=== PATIENT | female | born 1995 | race Caucasian/White ===

== ENCOUNTER 2025-04-18 05:21 | Emergency (ER) | payer OTHER ==
[2025-04-18 05:51] LABS: #Basophils 0.03 10x3/uL (0.0-0.2); #Eosinophils 0.36 10x3/uL (0.0-0.5); #Monocytes 0.72 10x3/uL (0.0-1.1); #Neutrophils 4.34 10x3/uL (1.5-8.4); %Basophils 0.4 % (0.0-2.0); %Eosinophils 4.7 % (0.0-6.0); %Lymphocytes 29.1 % (18.0-47.0); %Monocytes 9.3 % (0.0-10.0); %Neutrophils 56.2 % (40.0-75.0); Hematocrit 43.2 % (34.9-44.5); Hemoglobin 14.3 g/dL (12.0-15.5); Mean Corpuscular Hemoglobin 28.0 pg (27.0-33.0); Mean Corpuscular Volume 84.7 fL (81.6-98.3); Platelet Count 292 10x3/uL (150-450); Red Blood Cell (RBC) Count 5.10 10x6/uL (3.90-5.03); White Blood Cell (WBC) Count 7.71 10x3/uL (3.5-10.5)
[2025-04-18 05:57] LABS: Glucose, Urine (Dipstick) Normal (Negative); Leukocyte 500 (Negative); Protein, Urine (Dipstick) 15 mg/dl (Neg-Trace); Specific Gravity, Urine 1.020 (1.005-1.030)
[2025-04-18 06:00] LABS: Pregnancy Test - Urine (BHCG) Negative (Negative); Pregu Control Background? CLEAR/WHITE (CLR/WHITE); Pregu Control Bar Appear? YES (CONTROL BAR)
[2025-04-18 06:03] LABS: ALT (SGPT) 927 U/L (Less than 34); AST (SGOT) 212 U/L (11-34); Albumin 4.2 g/dL (3.1-4.5); Alkaline Phosphatase 326 U/L (40-110); Anion Gap 13 mmol/L (10-20); BUN (Urea Nitrogen) 7 mg/dL (7.0-18.7); Bilirubin, Total 1.6 mg/dL (0.3-1.2); Calc. Creatinine Clearance 0 mL/min (70-130); Calcium 9.4 mg/dL (7.8-10.44); Carbon Dioxide 22 mmol/L (22-29); Chloride 107 mmol/L (98-107); Globulin 3.6 g/dL (2.4-3.5); Glucose 102 mg/dL (70-105); Potassium 3.7 mmol/L (3.5-5.1); Sodium 138 mmol/L (136-145)
[2025-04-18 06:03] LABS: Bacteria/HPF None Seen HPF (None Seen); CAUTI Indications for Culture Dysuria,urgency,freq; RBC/HPF 0-3 HPF (0-3)
[2025-04-18 06:05] LABS: Urine Culture Reflex Yes Yes
[2025-04-18] MEDS ORDERED: Ketorolac Tromethamine 30 MG (1 mL) VIAL ONE ×2 (06:36→10:25)
[2025-04-18] MEDS ORDERED: cefTRIAXone (ROCEPHIN) 1 GM VIAL ONE (06:36)
[2025-04-18] MEDS ORDERED: Ondansetron PF 4 MG/2 ML Vial ONE ×3 (06:36→13:07)
[2025-04-18 07:22] LABS: INR-International Normal Ratio 0.9; PTT 26.8 sec (22.0-33.0); Prothrombin Time 10.4 sec (9.5-12.1)
[2025-04-18 07:26] LABS: Cocaine Metabolite Screen Negative (Negative); THC/Cannabinoid Screen PRELIM POSITIVE (Negative); Tricyclic Screen Negative (Negative)
[2025-04-18 07:26] LABS: Acetaminophen Less than 10 mcg/mL (Less than 10); Salicylate Less than 8.0 mg/dL (Less than 8.0)
[2025-04-18 14:30] LABS: Hep A IgM AB NONREACTIVE (NonReactive); Hep A IgM S/CO 0.13 S/CO (0-0.79); Hep B Core IgM Index 0.10 S/CO (0-0.79); Hep B Surf Ag NONREACTIVE S/CO (NonReactive); Hep C IgG Ab NONREACTIVE S/CO (NonReactive); Hep C Index 0.08 S/CO (0-0.79)
== END 2025-04-18 13:57 ==
LOC: CSHERS 05:21
DX: K72.00 Acute and subacute hepatic failure without coma (principal); N39.0 Urinary tract infection, site not specified; Z87.442 Personal history of urinary calculi; Z86.711 Personal history of pulmonary embolism
CPT/HCPCS: 74176; 80053; 80074; 80306; 80307; 81001; 81025; 83690; 85025; 85610; 85730; 87086; 96374; 96375; 96376; J0696; J1885; J2405